=== PATIENT | female | born 1945 | race Caucasian/White ===

== ENCOUNTER 2020-09-04 16:05 | Outpatient (RCR) | payer MEDICARE, SELFPAY ==
[2020-09-04] MEDS: COVID-19 VACC, MRNA(PFIZER)/PF 30 MCG/0.3 ML SYRINGE IM (17:33)
[2020-09-25] MEDS: COVID-19 VACC, MRNA(PFIZER)/PF 30 MCG/0.3 ML SYRINGE IM (17:24)
== END 2020-12-02 23:59 ==
LOC: IMMUN 16:05
PROVIDERS: PCP Internal Medicine; Visit Provider Family Medicine
DX: Z23 Encounter for immunization (principal)
CPT/HCPCS: 0001A; 0002A; 91300